=== PATIENT | female | born 2000 | race Caucasian/White ===

== ENCOUNTER 2019-09-17 04:15 | Emergency (ER) | payer OTHER ==
[~2019-09-17] VITALS: Ht 165.1 cm; Wt 59.1 kg
[~2019-09-17 04:15] MED LIST: AMOXICILLIN 50500 MG PO; BENADRYL25 M2 PO; BIRTH CONTROL PILLS; CONCERTA54 MG PO; DESOGESTREL PO; ETHINYL ESTRADIOL PO; KEPPRA 500MG500 MG PO; KEPPRA1000 MG PO; MELATONIN0.3 MG PO; OXYCODONE H5 MG/5 ML PO; STRATTERA 40MG40 MG PO; ZOFRAN 4MG T4 MG/TAB PO; [UNRECOGNIZED DRUG - OTHER]; [UNRECOGNIZED DRUG - OTHER]
[2019-09-17 04:33] VITALS: BP 129/83; TEMP 98
[2019-09-17 05:47] VITALS: PULSE 85
== END 2019-09-17 05:47 | disposition home or self-care (01) ==
LOC: COL.ER 04:15
DX: F41.9 Anxiety disorder, unspecified (principal); G40.909 Epilepsy, unspecified, not intractable, without status epilepticus; Z11.59 Encounter for screening for other viral diseases; Z79.899 Other long term (current) drug therapy

== ENCOUNTER 2019-10-13 00:33 | Emergency (ER) | payer OTHER ==
[~2019-10-13] VITALS: Ht 165.1 cm; Wt 54.5 kg
[2019-10-13 00:44] VITALS: TEMP 97.6
[2019-10-13 02:45] LABS: BASO % 0.5 % (0.0-2.0); EOS # 0.3 (0.0-0.7); GRAN # 2.7 (1.4-6.5); GRAN % 41.5 % (42.2-75.2); HEMATOCRIT 38.7 % (35.0-45.0); HEMOGLOBIN 12.6 g/dl (12.0-15.0); LYMPH # 2.6 (1.2-3.4); LYMPH % 40.1 % (20.0-51.0); MEAN CELL VOLUME 79 fl (80.0-95.0); MEAN CORPUSCULAR HEMOGLOBIN 26 pg (26.0-32.0); MEAN CORPUSCULAR HGB CONC 33 g/dl (33.0-37.0); MEAN PLATELET VOLUME 10.7 fl (7.4-10.4); MONO # 0.9 (0.1-0.6); MONO % 13.7 % (1.7-9.3); PLATELET COUNT 352 K/mm3 (130-400); RED BLOOD COUNT 4.88 M/mm3 (4.10-5.30); REDCELL DISTRIBUTION WIDTH-CV 13.2 % (11.5-14.5)
[2019-10-13 03:06] LABS: ALANINE AMINOTRANSFERASE 37 U/L (4-34); ALBUMIN 4.1 gm/dL (3.5-5.0); ALKALINE PHOSPHATASE 66 U/L (50-136); ANION GAP 10 mmol/L (7-16); AST,SGOT 27 U/L (15-37); BILIRUBIN,TOTAL 0.5 mg/dL (0.0-1.0); BLOOD UREA NITROGEN 11 mg/dL (7-17); CALCIUM 9.6 mg/dL (8.4-10.2); CARBON DIOXIDE 21 mmol/L (22-30); CHLORIDE 107 mmol/L (98-107); CREATININE, serum 0.54 (0.52-1.25); GLUCOSE 82 mg/dL (74-106); POTASSIUM 3.5 mmol/L (3.4-5.0); SODIUM 138 mmol/L (137-145); TOTAL PROTEIN 7.3 gm/dL (6.4-8.2)
[2019-10-13 03:07] LABS: C-REACTIVE PROTEIN < 0.5 mg/dL (0.0-0.9)
[2019-10-13 03:17] LABS: PROLACTIN 32.3 ng/mL (3.0-18.6)
[2019-10-13 03:39] VITALS: BP 121/81; PULSE 104
== END 2019-10-13 03:39 | disposition home or self-care (01) ==
LOC: COL.ER 00:33
PROVIDERS: Nurse Practitioner
DX: T23.221A Burn of second degree of single right finger (nail) except thumb, initial encounter (principal); S60.021A Contusion of right index finger without damage to nail, initial encounter; S60.011A Contusion of right thumb without damage to nail, initial encounter; G40.909 Epilepsy, unspecified, not intractable, without status epilepticus; W39.XXXA Discharge of firework, initial encounter; Y92.410 Unspecified street and highway as the place of occurrence of the external cause
CPT/HCPCS: J1953; J7030

== ENCOUNTER 2019-11-08 22:13 | Emergency (ER) | payer OTHER ==
[~2019-11-08] VITALS: Ht 172.7 cm; Wt 65.9 kg
[2019-11-08 23:12] VITALS: TEMP 98
[2019-11-08 23:21] LABS: BASO # 0.1 (0.0-0.2); BASO % 0.8 % (0.0-2.0); EOS # 0.4 (0.0-0.7); EOS % 4.4 % (0-4.0); GRAN % 45.8 % (42.2-75.2); HEMATOCRIT 39.9 % (35.0-45.0); HEMOGLOBIN 12.9 g/dl (12.0-15.0); LYMPH # 3.7 (1.2-3.4); LYMPH % 42.9 % (20.0-51.0); MEAN CELL VOLUME 80 fl (80.0-95.0); MEAN CORPUSCULAR HEMOGLOBIN 26 pg (26.0-32.0); MEAN CORPUSCULAR HGB CONC 32 g/dl (33.0-37.0); MEAN PLATELET VOLUME 9.9 fl (7.4-10.4); MONO # 0.5 (0.1-0.6); MONO % 5.9 % (1.7-9.3); PLATELET COUNT 394 K/mm3 (130-400); RED BLOOD COUNT 4.98 M/mm3 (4.10-5.30); REDCELL DISTRIBUTION WIDTH-CV 13.9 % (11.5-14.5)
[2019-11-08 23:32] LABS: ALBUMIN 4.1 gm/dL (3.5-5.0); BILIRUBIN,TOTAL 0.3 mg/dL (0.0-1.0); CALCIUM 8.7 mg/dL (8.4-10.2); CREATININE, serum 0.64 (0.52-1.25); POTASSIUM 3.4 mmol/L (3.4-5.0); TOTAL PROTEIN 7.1 gm/dL (6.4-8.2)
[2019-11-09 02:29] VITALS: BP 125/76; PULSE 86
== END 2019-11-09 02:29 | disposition home or self-care (01) ==
LOC: COL.ER 22:13
PROVIDERS: Emergency Medicine
DX: F10.129 Alcohol abuse with intoxication, unspecified (principal); G40.909 Epilepsy, unspecified, not intractable, without status epilepticus; F17.200 Nicotine dependence, unspecified, uncomplicated; Z32.02 Encounter for pregnancy test, result negative; Z88.6 Allergy status to analgesic agent
CPT/HCPCS: J2405; J7030

== ENCOUNTER 2020-12-11 22:11 | Outpatient (CLI) | payer MEDICAID ==
--- NOTE | 2020-12-11 22:15 | NUR ---
PT TO UNIT AMBULATORY WITH CONCERNS OF POSSIBLE SROM AND TIGHTENING SENSATION. PT ORIENTED TO ROOM, CHANGED INTO GOWN, EFM X2 APPLIED, VS OBTAINED, AMNIOSWAB NEGATIVE, SVE PERFORMED.
[2020-12-11 22:40] VITALS: BP 123/71; PULSE 82; TEMP 97.8
--- NOTE | 2020-12-11 22:57 | NUR ---
PT OFF MONITOR AT 2240 TO USE THE BATHROOM. MONITORING RESUMED AFTER THE BATHROOM AT 2250. PER DR. VARELA PT MAY DC HOME, MONITORING DC'D AT 2257. PT ALLOWED TO CHANGE INTO STREET CLOTHES WHILE PAPERWORK PREPARED.
[2020-12-11] MEDS ORDERED: PRENATAL TABLET PO (23:05)
--- NOTE | 2020-12-11 23:10 | NUR ---
DISCHARGE INSTRUCTIONS REVIEWED WITH PT. PT INSTRUCTED TO CONTRACT [facility] ON [facility]/15[facility], TO ESTABLISH CARE, EDUCATED PT ON THE IMPORTANCE OF ESTABLISHING CARE [facility] DUE TO HER SIGNIFICANT MEDICAL HX, PT TO CALL UNIT WITH QUESTIONS/CONCERNS, UNDERSTANDING VERBALIZED. PT OFF THE UNIT AMBULATORY FOR HOME.
== END 2020-12-11 23:10 | disposition home or self-care (01) ==
LOC: LDRO 22:11
DX: O99.350 Diseases of the nervous system complicating pregnancy, unspecified trimester (principal); Z3A.29 29 weeks gestation of pregnancy

== ENCOUNTER 2021-01-04 23:32 | Outpatient (CLI) | payer MEDICAID ==
--- NOTE | 2021-01-04 23:30 | NUR ---
CALL FROM ER ADMISSIONS THAT PT ARRIVED WITH COMPLAINTS OF SEIZURE AT HOME AND ELEVATED BP. THIS NURSE AND Daxa MARION RN TO ER WITH WHEELCHAIR. UPON ARRIVAL TO THE ER, PT SITTING IN WAITING ROOM, EYES OPEN BUT PT NOT RESPONDING TO VERBAL CUES. SPOUSE STATES THAT SHE HAS ABSENT SEIZURES. SPOUSE AND THIS NURSE MOVED PT TO WHEELCHAIR, TRANSFERRED TO OB. IN ROUTE TO LABOR ROOM PT SEIZED. DR VARELA IN ROOM UPON ARRIVAL TO LABOR ROOM, PT TRANSFERRED TO BED BY STAFF. EFMX2 APPLIED, VS OBTAINED. DR. VARELA ORDERS MAGNESIUM, 20 GAUGE IV STARTED IN RIGHT WRIST BY ELECTRIC MOTOR FITTER. PT POST ICTAL, TEARFUL, STATES ABDOMINAL PAIN AND INTERMITTENTLY BEARING DOWN. SVE PERFORMED BY Lena MUÑOZ RN, UNABLE TO DETERMINE DILATION PT NOT TOLERATING EXAM WELL. LOADING DOSE OF MAGNESIUM STARTED AT 2345. 18 GUAGE IV STARTED IN LEFT WRIST. MAINTENANCE DOSE OF MAGNESIUM STARTED AT 0012. SEE EMAR FOR FURTHER MEDICATION ADMINISTRATION. SEE PHYSICIAN NOTES FOR FURTHER DETAILS.
[~2021-01-04 23:32] MED LIST changes: +PRENATAL TABLET PO
[2021-01-05] VITALS (10 sets, daily range): BP systolic 117–153; BP diastolic 68–97; PULSE 84–118
--- NOTE | 2021-01-05 00:30 | NUR ---
Dr Dunn into room, discusses plan of care with pt. Dr Dunn attempts SVE, pt tenses hyperventilates, cries out. Dr Dunn coaches pt in attempt to complete SVE, unsuccessful. Dr Dunn continues at bedside, reviews pt history with pt and spouse. 0052 Dr Dunn out of room, to L&D desk.
[2021-01-05 00:32] LABS: HEMOGLOBIN 11.1 g/dl (12.5-16.0); MEAN CELL VOLUME 85 fl (80.0-100.0); MEAN CORPUSCULAR HEMOGLOBIN 29 pg (27.0-31.0); MEAN CORPUSCULAR HGB CONC 34 g/dl (33.0-37.0); MEAN PLATELET VOLUME 10.7 fl (7.4-10.4); PLATELET COUNT 335 K/mm3 (130-400); RED BLOOD COUNT 3.81 M/mm3 (4.10-5.30); REDCELL DISTRIBUTION WIDTH-CV 11.9 % (11.5-14.5)
[2021-01-05 00:35] LABS: HEMATOCRIT 32.5 % (37.0-47.0)
[2021-01-05 00:46] LABS: BILIRUBIN,TOTAL 0.2 mg/dL (0.2-1.2); CALCIUM 8.9 mg/dL (8.4-10.2); CREATININE, serum 0.7 mg/dL (0.57-1.11); POTASSIUM 4.1 mmol/L (3.5-4.5)
[2021-01-05 00:55] LABS: BAND 2 % (0-10); LYMPHOCYTE 30 % (20.0-51.0); NEUTROPHILS 62 % (42.0-75.2); PLATELET ESTIMATE NORMAL (NORMAL)
--- NOTE | 2021-01-05 01:52 | NUR ---
Report called to Kylee AUSTIN @ [facility] 0203 [facility] transport team into room. Bedside report given. 0225 Transfer off unit with [facility].
--- NOTE | 2021-01-05 02:25 | NUR ---
Off unit via transport cart with transport team.
== END 2021-01-05 02:25 ==
LOC: LDRO 23:32 → LDR 01-05 00:22 → LDRO 01-05 02:25
PROVIDERS: Obstetrics & Gynecology
DX: O99.350 Diseases of the nervous system complicating pregnancy, unspecified trimester (principal); R56.9 Unspecified convulsions; Z3A.00 Weeks of gestation of pregnancy not specified
CPT/HCPCS: OP; J0702; J1953; J3475; J7120

== ENCOUNTER 2021-04-29 11:34 | Emergency (ER) | payer MEDICAID ==
[~2021-04-29] VITALS: Ht 165.1 cm; Wt 59.1 kg
[2021-04-29 12:02] VITALS: BP 120/76; PULSE 104; TEMP 98.3
== END 2021-04-29 12:10 | disposition left against medical advice (07) ==
LOC: COL.ER 11:34
DX: U07.1 COVID-19 (principal); Z73.0 Burn-out

== ENCOUNTER 2021-06-06 13:06 | Emergency (ER) | payer OTHER, MEDICAID ==
[~2021-06-06] VITALS: Ht 165.1 cm; Wt 54.5 kg
[2021-06-06 13:11] VITALS: TEMP 98.4
[2021-06-06 13:41] LABS: COLLECTION METHOD CLEAN CATCH
[2021-06-06 13:46] LABS: MUCOUS Present (NOT PRESENT); PH 6 (5-8); SQUAMOUS EPITHELIAL 0-2 /hpf (0-10); URINE APPEARANCE Clear (CLEAR/HAZY); URINE BACTERIA Rare /hpf (NONE SEEN); URINE BILIRUBIN Negative (NEGATIVE); URINE BLOOD Negative (NEGATIVE); URINE COLOR Straw (YELLOW); URINE GLUCOSE Negative (NEGATIVE); URINE KETONE Negative (NEGATIVE); URINE LEUKOCYTE ESTERASE Negative (NEGATIVE); URINE NITRATE Negative (NEGATIVE); URINE PROTEIN(semi-quant) Negative (NEGATIVE); URINE RBC 0-2 /hpf (0-2); URINE UROBILINOGEN Negative (NEGATIVE)
[2021-06-06 13:54] LABS: TRICYCLIC ANTIDEPRESS URINE NEGATIVE
[2021-06-06] MEDS ORDERED: ATARAX 25MG25 MG/TAB PO (13:58)
[2021-06-06] MEDS ORDERED: LEXAPRO20 MG PO (13:58)
[2021-06-06 14:01] LABS: BASO % 0.5 % (0.0-2.0); EOS # 0.1 K/mm3 (0.0-0.7); EOS % 2.2 % (0.0-4.0); GRAN # 3.4 K/mm3 (1.4-6.5); GRAN % 57.9 % (42.2-75.2); HEMATOCRIT 42.4 % (37.0-47.0); HEMOGLOBIN 14.4 g/dl (12.5-16.0); LYMPH # 1.9 K/mm3 (1.2-3.4); LYMPH % 32.7 % (20.0-51.0); MEAN CELL VOLUME 83 fl (80.0-100.0); MEAN CORPUSCULAR HEMOGLOBIN 28 pg (27-31); MEAN CORPUSCULAR HGB CONC 34 g/dl (33.0-37.0); MEAN PLATELET VOLUME 10.3 fl (7.4-10.4); MONO # 0.4 K/mm3 (0.1-0.6); MONO % 6.4 % (1.7-9.3); PLATELET COUNT 285 K/mm3 (130-400); RED BLOOD COUNT 5.12 M/mm3 (4.10-5.30); REDCELL DISTRIBUTION WIDTH-CV 11.9 % (11.5-14.5)
[2021-06-06 14:19] LABS: ALBUMIN 4.8 gm/dL (3.5-5.0); BILIRUBIN,TOTAL 0.5 mg/dL (0.2-1.2); CALCIUM 9.3 mg/dL (8.4-10.2); CREATININE, serum 0.7 mg/dL (0.57-1.11); POTASSIUM 3.7 mmol/L (3.5-4.5); TOTAL PROTEIN 7.7 gm/dL (6.2-8.1)
[2021-06-06 15:45] VITALS: BP 128/66; PULSE 79
== END 2021-06-06 16:00 | disposition home or self-care (01) ==
LOC: COL.ER 13:06
PROVIDERS: Student in an Organized Health Care Education/Training Program
DX: G40.909 Epilepsy, unspecified, not intractable, without status epilepticus (principal)

== ENCOUNTER 2021-06-22 11:24 | Emergency (ER) | payer OTHER, MEDICAID ==
[~2021-06-22] VITALS: Ht 165.1 cm; Wt 59.1 kg
[~2021-06-22 11:24] MED LIST changes: +ATARAX 25MG25 MG/TAB PO; +LEXAPRO20 MG PO
[2021-06-22 11:28] VITALS: TEMP 98.6
[2021-06-22 11:56] LABS: COLLECTION METHOD CLEAN CATCH
[2021-06-22 12:06] LABS: PH 7 (5-8); SQUAMOUS EPITHELIAL 0-2 /hpf (0-10); URINE APPEARANCE Clear (CLEAR/HAZY); URINE BACTERIA None Seen /hpf (NONE SEEN); URINE BILIRUBIN Negative (NEGATIVE); URINE BLOOD Negative (NEGATIVE); URINE COLOR Straw (YELLOW); URINE GLUCOSE Negative (NEGATIVE); URINE KETONE Trace (NEGATIVE); URINE LEUKOCYTE ESTERASE Negative (NEGATIVE); URINE NITRATE Negative (NEGATIVE); URINE PROTEIN(semi-quant) Negative (NEGATIVE); URINE RBC None Seen /hpf (0-2); URINE UROBILINOGEN Negative (NEGATIVE)
[2021-06-22 13:16] LABS: ALBUMIN 4.3 gm/dL (3.5-5.0); BILIRUBIN,TOTAL 0.6 mg/dL (0.2-1.2); CALCIUM 9.2 mg/dL (8.4-10.2); CREATININE, serum 0.76 mg/dL (0.57-1.11); POTASSIUM 3.7 mmol/L (3.5-4.5); TOTAL PROTEIN 7.1 gm/dL (6.2-8.1)
[2021-06-22 14:00] LABS: BASO % 0.2 % (0.0-2.0); EOS % 0.5 % (0.0-4.0); GRAN % 58.7 % (42.2-75.2); HEMOGLOBIN 13.2 g/dl (12.5-16.0); LYMPH % 34.9 % (20.0-51.0); MEAN CELL VOLUME 80 fl (80.0-100.0); MEAN CORPUSCULAR HEMOGLOBIN 28 pg (27-31); MEAN CORPUSCULAR HGB CONC 35 g/dl (33.0-37.0); MEAN PLATELET VOLUME 9.9 fl (7.4-10.4); MONO # 0.5 K/mm3 (0.1-0.6); MONO % 5.4 % (1.7-9.3); PLATELET COUNT 412 K/mm3 (130-400); RED BLOOD COUNT 4.74 M/mm3 (4.10-5.30); REDCELL DISTRIBUTION WIDTH-CV 12.7 % (11.5-14.5)
[2021-06-22 18:25] VITALS: BP 137/80; PULSE 86
== END 2021-06-22 18:25 | disposition home or self-care (01) ==
LOC: COL.ER 11:24
PROVIDERS: Emergency Medicine
DX: O99.350 Diseases of the nervous system complicating pregnancy, unspecified trimester (principal); G40.909 Epilepsy, unspecified, not intractable, without status epilepticus; Z87.891 Personal history of nicotine dependence; Z3A.00 Weeks of gestation of pregnancy not specified; Z79.899 Other long term (current) drug therapy
CPT/HCPCS: J1953; J2060; J3475

== ENCOUNTER 2021-06-22 20:04 | Emergency (ER) | payer OTHER, MEDICAID ==
[~2021-06-22] VITALS: Ht 165.1 cm; Wt 54.5 kg
[2021-06-22 20:51] LABS: BASO % 0.4 % (0.0-2.0); EOS % 0.3 % (0.0-4.0); GRAN # 6.5 K/mm3 (1.4-6.5); GRAN % 67.9 % (42.2-75.2); HEMATOCRIT 38.5 % (37.0-47.0); HEMOGLOBIN 13.3 g/dl (12.5-16.0); LYMPH # 2.5 K/mm3 (1.2-3.4); LYMPH % 26.2 % (20.0-51.0); MEAN CELL VOLUME 81 fl (80.0-100.0); MEAN CORPUSCULAR HEMOGLOBIN 28 pg (27-31); MEAN CORPUSCULAR HGB CONC 35 g/dl (33.0-37.0); MEAN PLATELET VOLUME 10.4 fl (7.4-10.4); MONO # 0.5 K/mm3 (0.1-0.6); MONO % 4.9 % (1.7-9.3); PLATELET COUNT 457 K/mm3 (130-400); RED BLOOD COUNT 4.76 M/mm3 (4.10-5.30); REDCELL DISTRIBUTION WIDTH-CV 12.6 % (11.5-14.5)
[2021-06-22 22:30] VITALS: BP 119/80; PULSE 96
== END 2021-06-22 22:30 | disposition home or self-care (01) ==
LOC: COL.ER 20:04
PROVIDERS: Family Medicine
DX: O99.350 Diseases of the nervous system complicating pregnancy, unspecified trimester (principal); G40.909 Epilepsy, unspecified, not intractable, without status epilepticus; Z3A.00 Weeks of gestation of pregnancy not specified; Z79.899 Other long term (current) drug therapy

== ENCOUNTER 2021-06-24 20:40 | Emergency (ER) | payer OTHER, MEDICAID ==
[~2021-06-24] VITALS: Ht 165.1 cm; Wt 54.5 kg
[2021-06-24 20:46] VITALS: TEMP 98.5
[2021-06-24 21:41] LABS: BASO # 0.1 K/mm3 (0.0-0.2); BASO % 0.5 % (0.0-2.0); EOS # 0.1 K/mm3 (0.0-0.7); EOS % 1.3 % (0.0-4.0); GRAN # 5.5 K/mm3 (1.4-6.5); GRAN % 59.1 % (42.2-75.2); HEMOGLOBIN 12.2 g/dl (12.5-16.0); LYMPH # 3.1 K/mm3 (1.2-3.4); LYMPH % 33.2 % (20.0-51.0); MEAN CELL VOLUME 81 fl (80.0-100.0); MEAN CORPUSCULAR HEMOGLOBIN 28 pg (27-31); MEAN CORPUSCULAR HGB CONC 34 g/dl (33.0-37.0); MEAN PLATELET VOLUME 9.9 fl (7.4-10.4); MONO # 0.5 K/mm3 (0.1-0.6); MONO % 5.7 % (1.7-9.3); PLATELET COUNT 410 K/mm3 (130-400); REDCELL DISTRIBUTION WIDTH-CV 12.6 % (11.5-14.5)
[2021-06-24 21:42] LABS: HEMATOCRIT 35.5 % (37.0-47.0)
[2021-06-24 21:58] LABS: ALBUMIN 3.9 gm/dL (3.5-5.0); BILIRUBIN,TOTAL 0.3 mg/dL (0.2-1.2); CALCIUM 8.9 mg/dL (8.4-10.2); CREATININE, serum 0.67 mg/dL (0.57-1.11); POTASSIUM 3.4 mmol/L (3.5-4.5); TOTAL PROTEIN 6.6 gm/dL (6.2-8.1)
[2021-06-24 22:18] LABS: PROLACTIN 9.4 ng/mL (5.18-26.53)
[2021-06-24 23:08] VITALS: BP 107/77; PULSE 73
== END 2021-06-24 23:08 | disposition home or self-care (01) ==
LOC: COL.ER 20:40
PROVIDERS: Emergency Medicine
DX: O99.891 Other specified diseases and conditions complicating pregnancy (principal); R25.8 Other abnormal involuntary movements; Z3A.01 Less than 8 weeks gestation of pregnancy

== ENCOUNTER 2021-09-04 15:37 | Emergency (ER) | payer OTHER, MEDICAID ==
[~2021-09-04] VITALS: Ht 165.1 cm; Wt 59.1 kg
[2021-09-04 15:47] VITALS: BP 129/84; TEMP 98.5
[2021-09-04] MEDS ORDERED: PROZAC 20MG20 MG (15:51)
[2021-09-04 16:48] VITALS: PULSE 93
== END 2021-09-04 16:48 | disposition home or self-care (01) ==
LOC: COL.ER 15:37
DX: Z13.89 Encounter for screening for other disorder (principal)

== ENCOUNTER 2021-09-12 17:26 | Emergency (ER) | payer OTHER, MEDICAID ==
[~2021-09-12] VITALS: Ht 165.1 cm; Wt 59.1 kg
[~2021-09-12 17:26] MED LIST changes: +PROZAC 20MG20 MG
[2021-09-12 17:31] VITALS: TEMP 98.7
[2021-09-12 17:51] LABS: BASO % 0.2 % (0.0-2.0); EOS % 0.2 % (0.0-4.0); GRAN # 13.2 K/mm3 (1.4-6.5); GRAN % 78.2 % (42.2-75.2); HEMATOCRIT 37.3 % (37.0-47.0); HEMOGLOBIN 12.9 g/dl (12.5-16.0); LYMPH # 2.8 K/mm3 (1.2-3.4); LYMPH % 16.6 % (20.0-51.0); MEAN CELL VOLUME 85 fl (80.0-100.0); MEAN CORPUSCULAR HEMOGLOBIN 30 pg (27-31); MEAN CORPUSCULAR HGB CONC 35 g/dl (33.0-37.0); MEAN PLATELET VOLUME 10.3 fl (7.4-10.4); MONO # 0.7 K/mm3 (0.1-0.6); MONO % 4.3 % (1.7-9.3); PLATELET COUNT 389 K/mm3 (130-400); RED BLOOD COUNT 4.37 M/mm3 (4.10-5.30); REDCELL DISTRIBUTION WIDTH-CV 13.1 % (11.5-14.5)
[2021-09-12 18:15] LABS: ALANINE AMINOTRANSFERASE 13 U/L (0-55); ALBUMIN 3.6 gm/dL (3.5-5.0); ALKALINE PHOSPHATASE 52 U/L (40-150); ANION GAP 15 mmol/L (7-16); AST,SGOT 10 U/L (5-34); BILIRUBIN,TOTAL 0.2 mg/dL (0.2-1.2); BLOOD UREA NITROGEN 6 mg/dL (7-19); CALCIUM 9.5 mg/dL (8.4-10.2); CARBON DIOXIDE 17 mmol/L (22-29); CHLORIDE 106 mmol/L (98-107); CREATINE KINASE 40 U/L (29-168); CREATININE, serum 0.67 mg/dL (0.57-1.11); GLUCOSE 105 mg/dL (70-99); POTASSIUM 4.3 mmol/L (3.5-4.5); SODIUM 138 mmol/L (136-145); TOTAL PROTEIN 7.5 gm/dL (6.2-8.1)
[2021-09-12 18:22] LABS: ALCOHOL(ethanol),MEDICAL < 10 mg/dL (0-10)
[2021-09-12 19:01] LABS: COLLECTION METHOD CLEAN CATCH
[2021-09-12 19:10] LABS: MUCOUS Present (NOT PRESENT); PH 5 (5-8); SQUAMOUS EPITHELIAL 0-2 /hpf (0-10); URINE APPEARANCE Clear (CLEAR/HAZY); URINE BACTERIA Rare /hpf (NONE SEEN); URINE BILIRUBIN Negative (NEGATIVE); URINE BLOOD Negative (NEGATIVE); URINE COLOR Yellow (YELLOW); URINE GLUCOSE Negative (NEGATIVE); URINE KETONE Trace (NEGATIVE); URINE LEUKOCYTE ESTERASE Negative (NEGATIVE); URINE NITRATE Negative (NEGATIVE); URINE PROTEIN(semi-quant) Negative (NEGATIVE); URINE RBC 0-2 /hpf (0-2); URINE UROBILINOGEN Negative (NEGATIVE)
[2021-09-12 19:19] LABS: TRICYCLIC ANTIDEPRESS URINE NEGATIVE
[2021-09-12] MEDS ORDERED: CEPHALEXIN500 M1 PO (19:21)
[2021-09-12 19:33] VITALS: BP 113/79; PULSE 96
== END 2021-09-12 19:33 | disposition home or self-care (01) ==
LOC: COL.ER 17:26
PROVIDERS: Emergency Medicine
DX: O9A.212 Injury, poisoning and certain other consequences of external causes complicating pregnancy, second trimester (principal); R41.82 Altered mental status, unspecified; T50.905A Adverse effect of unspecified drugs, medicaments and biological substances, initial encounter; O99.112 Other diseases of the blood and blood-forming organs and certain disorders involving the immune mechanism complicating pregnancy, second trimester; D72.829 Elevated white blood cell count, unspecified; Z3A.17 17 weeks gestation of pregnancy

== ENCOUNTER 2021-10-08 11:59 | Outpatient (CLI) | payer OTHER, MEDICAID ==
[~2021-10-08] VITALS: Ht 170.2 cm; Wt 57.3 kg
[~2021-10-08 11:59] MED LIST changes: +CEPHALEXIN500 M1 PO
--- NOTE | 2021-10-08 12:05 | NUR ---
PT AMBULATORY TO UNIT C/O SROM @ 1130. "THE FLOOR WAS FLOODED, AND IT JUST KEEPS LEAKING". CLEAR FLUID NOTED RUNNING DOWN PT'S LEG. ASSISTED INTO BED. PT REPORTS SHE IS 22 WEEKS, RECORDS INDICATE PT IS 19.1 GESTATION. REPORTS WHAT SHE BELIVES TO BE "REGULAR CONTRACTION PAIN NEAR HER RIB CAGE." REPORTS POSITIVE MOVEMENT. REPORTS HX OF PRECLAMPSIA, EPILEPSY (NOT CURRENTLY TAKING KEPPRA DUE TO NEEDING IT REFILLED), LABOR X2, HX CSECTION X1, DEPRESSION, ANXIETY AND UTI/"KIDNEY INFECTION" DIAGNOSED IN THE [facility] ER 2 DAYS AGO. NOT CURRENTLY TREATING REPORTED UTI/KIDNEY INFECTION. PT AFEBRILE. VITAL SIGNS STABLE. NO CONTRACTIONS ON TOCO. DOPPLER HEART RATE 135. SVE FT/THICK/-3. WILL NOTIFY PROVIDER.
[2021-10-08 12:30] VITALS: BP 104/65; PULSE 82; TEMP 97.8
--- NOTE | 2021-10-08 12:48 | NUR ---
AT BEDSIDE, BEDSIDE ULTRASOUND SHOWS "PLENTY OF FLUID" AROUND BABY. ROM PLUS TEST (NEGATIVE) PER LAB.
[2021-10-08 13:00] VITALS: BP 119/68; PULSE 100
[2021-10-08 13:07] LABS: COLLECTION METHOD CLEAN CATCH
[2021-10-08 13:16] LABS: PH 7 (5-8); SQUAMOUS EPITHELIAL None Seen /hpf (0-10); URINE APPEARANCE Clear (CLEAR/HAZY); URINE BACTERIA None Seen /hpf (NONE SEEN); URINE BILIRUBIN Negative (NEGATIVE); URINE BLOOD Negative (NEGATIVE); URINE COLOR Colorless (YELLOW); URINE GLUCOSE Negative (NEGATIVE); URINE KETONE Negative (NEGATIVE); URINE LEUKOCYTE ESTERASE Negative (NEGATIVE); URINE NITRATE Negative (NEGATIVE); URINE PROTEIN(semi-quant) Negative (NEGATIVE); URINE RBC None Seen /hpf (0-2); URINE UROBILINOGEN Negative (NEGATIVE); URINE WBC 0-2 /hpf (0-2)
--- NOTE | 2021-10-08 13:32 | NUR ---
ON PHONE TO PHARMACY NOW REFILLING PT'S CURRENT [facility] MEDICATION PRESCRIPTION.
--- NOTE | 2021-10-08 13:42 | NUR ---
PER , PT MAY DC HOME.
--- NOTE | 2021-10-08 13:51 | NUR ---
ALL DC PAPERWORK REVIEWED AND UNDERSTOOD. ALL FOLLOW UP APPOINTMENTS AND MEDICATIONS REVIEWED AND ACKNOWLEDGED BY PT. DENIES FURTHER QUESTION OR CONCERNS. PT AMBULATORY FROM UNIT IN STABLE CONDITION.
== END 2021-10-08 13:55 | disposition home or self-care (01) ==
LOC: LDRO 11:59
PROVIDERS: Obstetrics & Gynecology
DX: Z34.90 Encounter for supervision of normal pregnancy, unspecified, unspecified trimester (principal); Z3A.00 Weeks of gestation of pregnancy not specified

== ENCOUNTER 2021-11-11 21:39 | Emergency (ER) | payer OTHER, MEDICAID ==
[~2021-11-11] VITALS: Ht 165.1 cm; Wt 63.6 kg
[2021-11-11 21:40] VITALS: TEMP 98.3
--- NOTE | 2021-11-11 22:15 | NUR ---
G3 24WKS IN HERE FOR LOW BLOOD SUGARS AND SEIZURES TODAY. PT DENIES CONTRACTIONS, LEAKING OF FLUIDS OR VAGINAL BLEEDING. REPORTS GOOD MOVEMENT.
[2021-11-11 22:27] LABS: BASO # 0.1 K/mm3 (0.0-0.2); BASO % 0.5 % (0.0-2.0); EOS # 0.1 K/mm3 (0.0-0.7); EOS % 0.6 % (0.0-4.0); GRAN # 8.5 K/mm3 (1.4-6.5); GRAN % 68.3 % (42.2-75.2); HEMATOCRIT 31.5 % (37.0-47.0); LYMPH # 2.9 K/mm3 (1.2-3.4); LYMPH % 23.1 % (20.0-51.0); MEAN CELL VOLUME 86 fl (80.0-100.0); MEAN CORPUSCULAR HEMOGLOBIN 30 pg (27-31); MEAN CORPUSCULAR HGB CONC 35 g/dl (33.0-37.0); MEAN PLATELET VOLUME 10.2 fl (7.4-10.4); MONO # 0.8 K/mm3 (0.1-0.6); MONO % 6.6 % (1.7-9.3); PLATELET COUNT 327 K/mm3 (130-400); RED BLOOD COUNT 3.68 M/mm3 (4.10-5.30)
--- NOTE | 2021-11-11 22:42 | NUR ---
NO CONTRACTIONS NOTED TO TOCO.
[2021-11-11 22:53] LABS: ALBUMIN 3.1 gm/dL (3.5-5.0); BILIRUBIN,TOTAL 0.2 mg/dL (0.2-1.2); CALCIUM 8.8 mg/dL (8.4-10.2); CREATININE, serum 0.6 mg/dL (0.57-1.11); POTASSIUM 3.8 mmol/L (3.5-4.5); TOTAL PROTEIN 6.8 gm/dL (6.2-8.1)
[2021-11-11 23:43] LABS: COLLECTION METHOD CLEAN CATCH
[2021-11-11 23:44] LABS: PROLACTIN 261.7 ng/mL (5.18-26.53)
[2021-11-11 23:54] LABS: PH 7 (5-8); SQUAMOUS EPITHELIAL 0-2 /hpf (0-10); URINE APPEARANCE Clear (CLEAR/HAZY); URINE BACTERIA None Seen /hpf (NONE SEEN); URINE BLOOD Negative (NEGATIVE); URINE COLOR Straw (YELLOW); URINE GLUCOSE Negative (NEGATIVE); URINE KETONE Negative (NEGATIVE); URINE NITRATE Negative (NEGATIVE); URINE PROTEIN(semi-quant) Negative (NEGATIVE); URINE RBC None Seen /hpf (0-2); URINE UROBILINOGEN Negative (NEGATIVE)
[2021-11-12 01:46] VITALS: BP 107/75; PULSE 85
== END 2021-11-12 01:50 | disposition home or self-care (01) ==
LOC: COL.ER 21:39
PROVIDERS: Nurse Practitioner
DX: O99.352 Diseases of the nervous system complicating pregnancy, second trimester (principal); G40.909 Epilepsy, unspecified, not intractable, without status epilepticus; Z28.310 Unvaccinated for COVID-19; Z3A.25 25 weeks gestation of pregnancy
CPT/HCPCS: J1953; J2060; J7030

== ENCOUNTER 2022-01-06 17:28 | Emergency (ER) | payer MEDICAID ==
[~2022-01-06] VITALS: Ht 165.1 cm; Wt 65.9 kg
[2022-01-06 18:22] LABS: BASO % 0.4 % (0.0-2.0); EOS # 0.1 K/mm3 (0.0-0.7); EOS % 0.6 % (0.0-4.0); GRAN # 7.2 K/mm3 (1.4-6.5); GRAN % 68.5 % (42.2-75.2); HEMOGLOBIN 11.1 g/dl (12.5-16.0); LYMPH # 2.3 K/mm3 (1.2-3.4); MEAN CELL VOLUME 83 fl (80.0-100.0); MEAN CORPUSCULAR HEMOGLOBIN 28 pg (27-31); MEAN CORPUSCULAR HGB CONC 34 g/dl (33.0-37.0); MEAN PLATELET VOLUME 10.7 fl (7.4-10.4); MONO # 0.8 K/mm3 (0.1-0.6); MONO % 7.5 % (1.7-9.3); PLATELET COUNT 314 K/mm3 (130-400); RED BLOOD COUNT 3.92 M/mm3 (4.10-5.30); REDCELL DISTRIBUTION WIDTH-CV 12.4 % (11.5-14.5)
[2022-01-06 18:24] LABS: HEMATOCRIT 32.4 % (37.0-47.0)
[2022-01-06 18:42] LABS: CREATININE, serum 0.62 mg/dL (0.57-1.11); POTASSIUM 3.9 mmol/L (3.5-4.5); TOTAL PROTEIN 6.9 gm/dL (6.2-8.1)
[2022-01-06 19:02] LABS: BILIRUBIN,TOTAL 0.3 mg/dL (0.2-1.2)
[2022-01-06 22:00] VITALS: BP 120/63; PULSE 132; TEMP 98
== END 2022-01-06 22:00 | disposition short-term general hospital (02) ==
LOC: COL.ER 17:28
PROVIDERS: Personal Emergency Response Attendant
DX: O99.353 Diseases of the nervous system complicating pregnancy, third trimester (principal); O15.03 Eclampsia complicating pregnancy, third trimester; G40.909 Epilepsy, unspecified, not intractable, without status epilepticus; Z79.899 Other long term (current) drug therapy; Z3A.33 33 weeks gestation of pregnancy
CPT/HCPCS: J0360; J0702; J1953; J2060; J3475; J7030